=== PATIENT | female | born 2000 | race Caucasian/White ===

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

== ENCOUNTER 2020-07-13 17:08 | Emergency (ER) | payer MEDICAID, OTHER ==
[2020-07-13 17:46] LABS: #Basophils 0.1 thou/uL (0.0-0.2); #Eosinphils 0.2 thou/uL (0.0-0.7); #Lymphocytes 1.8 thou/uL (1.20-3.40); #Monocytes 0.5 thou/uL (0.11-0.59); #Neutrophils 4.9 thou/uL (1.40-6.50); %Basophils 1.2 % (0.0-1.0); %Eosinophils 2.4 % (0.0-10.0); %Lymphocytes 24.7 % (28.0-48.0); %Neutrophils 65.7 % (31.0-61.0); Hemoglobin 12.8 g/dL (12.0-16.0); Mean Corpuscular HGB CONC 31.3 g/dL (32.0-36.0); Mean Corpuscular Hemoglobin 29.7 pg (25.0-35.0); Mean Corpuscular Volume 94.9 fL (78.0-98.0); Mean Platelet Volume 7.8 fL (7.4-10.4); Platelet Count 330 thou/uL (130-400); RBC Distribution Width 11.5 % (11.5-14.5); Red Blood Cell (RBC) Count 4.33 mill/uL (4.00-5.20); White Blood Cell (WBC) Count 7.4 thou/uL (4.8-10.8)
[2020-07-13 17:48] LABS: Prothrombin Time 13.1 sec (12.0-14.7)
[2020-07-13 17:59] LABS: ALT (SGPT) 53 U/L (8-55); AST (SGOT) 30 U/L (5-30); Albumin 4.3 g/dL (3.5-5.0); Alkaline Phosphatase 53 U/L (40-100); Anion Gap 14 mmol/L (10-20); BUN (Urea Nitrogen) 8 mg/dL (8.4-21.0); Bilirubin, Total 0.5 mg/dL (0.2-1.2); Calc. Creatinine Clearance 0 mL/min (70-130); Calcium 8.9 mg/dL (7.8-10.44); Carbon Dioxide 25 mmol/L (22-29); Chloride 102 mmol/L (98-107); Estimated GFR-MDRD Greater than 90; Globulin 2.5 g/dL (2.4-3.5); Glucose 106 mg/dL (70-105); Potassium 4.3 mmol/L (3.5-5.1); Protein, Total 6.8 g/dL (6.0-8.3); Sodium 137 mmol/L (136-145)
[2020-07-13 18:58] LABS: Bilirubin Negative (Negative); Blood, Urine Trace (Negative); Clarity Clear (Clear); Glucose, Urine (Dipstick) Negative (Negative); Ketone, Urine Trace mg/dL (Negative); Leukocyte Negative (Negative); Nitrite Negative (Negative); Protein, Urine (Dipstick) Negative (Neg-Trace); Urobilinogen 0.2 mg/dL (Less than 2)
[2020-07-13 19:03] LABS: Specific Gravity, Urine 1.032 (1.002-1.036)
[2020-07-13 19:04] LABS: Bacteria/HPF None Seen HPF (None Seen); RBC/HPF 0-3 HPF (0-3); Squamous Epithelial 0-3 HPF (0-3); WBC/HPF None Seen HPF (0-3)
== END 2020-07-13 19:20 | disposition home or self-care (01) ==
LOC: BURERS 17:08
DX: O20.0 Threatened abortion (principal); Z3A.08 8 weeks gestation of pregnancy
CPT/HCPCS: 36415; 80053; 81003; 81015; 84702; 85025; 85610; 99284

== ENCOUNTER 2022-04-09 18:26 | Emergency (ER) | payer OTHER | END 2022-04-09 20:30 | disposition home or self-care (01) | LOC: BURERS 18:26 | DX: S82.62XA Displaced fracture of lateral malleolus of left fibula, initial encounter for closed fracture (principal); X50.1XXA Overexertion from prolonged static or awkward postures, initial encounter; Y93.01 Activity, walking, marching and hiking | CPT/HCPCS: 27786 ==

== ENCOUNTER 2022-06-18 14:53 | Emergency (ER) | payer OTHER ==
[2022-06-18] MEDS ORDERED: HYDROcodone/Acetaminophen 5/325 mg Tablet ONE (15:18)
[2022-06-18] MEDS ORDERED: Ibuprofen 800 MG TAB ONE (15:18)
== END 2022-06-18 15:30 | disposition home or self-care (01) ==
LOC: BURERS 14:53
DX: S93.402A Sprain of unspecified ligament of left ankle, initial encounter (principal); W10.1XXA Fall (on)(from) sidewalk curb, initial encounter

== ENCOUNTER 2022-09-11 18:31 | Emergency (ER) | payer OTHER ==
[2022-09-11 19:10] LABS: Bilirubin Small (Negative); Blood, Urine Negative (Negative); Glucose, Urine (Dipstick) Negative (Negative); Ketone, Urine Trace mg/dL (Negative); Leukocyte Negative (Negative); Nitrite Positive (Negative); Protein, Urine (Dipstick) Trace mg/dL (Neg-Trace); pH, Urine 5.5 (5.0-9.0)
[2022-09-11 19:11] LABS: Clarity Slightly Cloudy (Clear); Specific Gravity, Urine 1.034 (1.002-1.036)
[2022-09-11 19:13] LABS: Pregnancy Test - Urine (BHCG) Negative (Negative); Pregu Control Background? CLEAR/WHITE (CLR/WHITE); Pregu Control Bar Appear? YES (CONTROL BAR); Specific Gravity 1.034 (1.002-1.036)
[2022-09-11 19:17] LABS: Bacteria/HPF 2+ HPF (None Seen); RBC/HPF None Seen HPF (0-3); WBC/HPF 0-3 HPF (0-3)
[2022-09-11 19:18] LABS: Mucous/LPF 4+ LPF (<2+)
[2022-09-11] MEDS ORDERED: Sulfameth/Trimethoprim DS 800-160mg TAB ONE (20:05)
[2022-09-12 17:34] LABS: Chlamydia by PCR Not Detected (NotDetected); GC by PCR Not Detected (NotDetected)
== END 2022-09-11 20:08 | disposition home or self-care (01) ==
LOC: BURERS 18:31
DX: N39.0 Urinary tract infection, site not specified (principal)
CPT/HCPCS: 81003; 81015; 81025; 87480; 87491; 87510; 87591; 87660; 99283

== ENCOUNTER 2023-07-06 19:07 | Emergency (ER) | payer OTHER ==
[2023-07-06] MEDS ORDERED: Dexamethasone 10 MG/ML VIAL ONE (20:08)
[2023-07-06] MEDS ORDERED: AMOXicillin 250 MG CAP ONE (20:08)
[2023-07-06] MEDS ORDERED: Acetaminophen 325 MG TAB ONE (20:18)
[2023-07-06] MEDS ORDERED: Bicillin LA 1.2 MILLION UNITS/2 ML SYRINGE ONE (20:18)
== END 2023-07-06 20:56 | disposition home or self-care (01) ==
LOC: BURERS 19:07
DX: J02.0 Streptococcal pharyngitis (principal); Z20.822 Contact with and (suspected) exposure to COVID-19
CPT/HCPCS: 87635; 87804; 96372; 99283; J0561; J1100